=== PATIENT | female | born 1965 | race Caucasian/White ===

== ENCOUNTER → 2024-02-10 12:55 | Outpatient (REF) | payer BC, SELFPAY | LOC: RAD 12:55 | PROVIDERS: ATTENDING PHYSICIAN Nurse Practitioner Family; FAMILY PHYSICIAN Family Medicine | DX: R07.89 Other chest pain (principal) | CPT/HCPCS: 71046 ==

== ENCOUNTER → 2024-03-14 12:04 | Outpatient (REF) | payer BC, SELFPAY | LOC: RAD 12:04 | PROVIDERS: ATTENDING PHYSICIAN Family Medicine | DX: R05.2 Subacute cough (principal) | CPT/HCPCS: 71046 ==

== ENCOUNTER → 2024-03-25 13:51 | Outpatient (REF) | payer BC, SELFPAY | LOC: HWRAD 13:51 | PROVIDERS: ATTENDING PHYSICIAN Family Medicine | DX: R05.3 Chronic cough (principal); J47.0 Bronchiectasis with acute lower respiratory infection | CPT/HCPCS: 71250 ==

== ENCOUNTER 2024-04-27 06:35 | Day surgery (SDC) | payer BC, SELFPAY ==
[2024-04-27 10:32] VITALS: BMI 18.2
[2024-04-27 10:33] VITALS: BP 124/65
[2024-04-27 10:44] VITALS: BMI 18.2
[2024-04-27] MEDS: TRANSDERM-SCOP 1 PATCH TRANSDERM (10:59)
[2024-04-27 11:35] VITALS: BP 125/65
[2024-04-27 12:30] VITALS: BP 125/59
[2024-04-27 12:45] VITALS: BP 122/55
[2024-04-27 13:15] VITALS: BP 115/57
[2024-04-27 14:55] LABS: BAL Lymphocytes 11 %; BAL Macrophages 58 %; BAL Neutrophils 31 %; Brochalveolar Lavage Character Hazy (Clear); Brochalveolar Lavage Color Pink; Brochalveolar Lavage Volume 17 ml; Brochalveolar Lavage WBC 264000 cells/ml
== END 2024-04-27 13:15 | disposition home or self-care (01) ==
LOC: GI 06:35
PROVIDERS: ATTENDING PHYSICIAN Internal Medicine Critical Care Medicine
DX: J98.11 Atelectasis (principal); J21.9 Acute bronchiolitis, unspecified
CPT/HCPCS: 31624; 31645; 87070; 87102; 87107; 87116; 87205; 88112; 89051

== ENCOUNTER → 2024-05-04 09:08 | Outpatient (REF) | payer BC, SELFPAY | LOC: RAD 09:08 | PROVIDERS: ATTENDING PHYSICIAN Surgery Vascular Surgery; FAMILY PHYSICIAN Family Medicine | DX: Z13.6 Encounter for screening for cardiovascular disorders (principal) | CPT/HCPCS: 76770 ==

== ENCOUNTER → 2024-09-30 11:52 | Outpatient (REF) | payer BC, SELFPAY | LOC: RAD 11:52 | PROVIDERS: ATTENDING PHYSICIAN Internal Medicine Critical Care Medicine; FAMILY PHYSICIAN Family Medicine | DX: J47.9 Bronchiectasis, uncomplicated (principal); A31.9 Mycobacterial infection, unspecified | CPT/HCPCS: 71250 ==

== ENCOUNTER 2024-11-01 09:04 | Emergency (ER) | payer BC, SELFPAY ==
[2024-11-01 09:12] VITALS: BP 118/68
--- NOTE | 2024-11-01 09:29 | ED.GENMED ---
History of Present Illness
General
Chief Complaint: Chest Problem
Time Seen by Provider: 11/01/24 09:18
History of Present Illness
History of Present Illness:
59-year-old female with history of bronchiectasis and Mycobacterium AVM presents to the emergency department for evaluation of chest pain and shortness of breath. She notes over the past several months she has had progressive worsening dysphagia
and is concerned for esophageal stricture. She had seen GI as an outpatient and was scheduled for an endoscopy however due to insurance issues had to cancel this. She has been using predominantly a soft diet to curb the symptoms. Notes that in
the past several days she has had increased chest discomfort and this morning felt short of breath and walking up the stairs concerning her for a nonesophageal problem. Denies any recent fevers or coughing. No leg swelling. Tolerating soft diet
without sensation of food bolus obstruction.
Past History
Past History
ED Past Medical History: Other (Pneumonia and pleurisy); Negative Asthma, CAD, HTN, Hypercholesterolemia, IDDM or NIDDM
ED Past Surgical History: Appendectomy and Other (ureter)
Social History
Tobacco: Non-smoker
Alcohol: None
Drug: None
Personal:
Living: with family
Employment: Employed
Family History
Family History: Negative Early CAD
Review of Systems
Review of Systems
Allergies reviewed?: Yes
All Other Systems: ROS reviewed and negative except as documented in HPI and ROS
Phy Exam
Physical Exam
Physical Exam:
GEN: Well appearing, NAD, WDWN
HEENT: Oral mucosa moist, no scleral icterus
Cardiac: Tachycardic, regular
Lung: No respiratory distress, no tachypnea, lungs clear to auscultation bilaterally
Abdomen: Soft, grossly nontender
MSK: No gross deformity or injuries
Skin: Good color, no pallor or jaundice, no rashes
Neuro: AO x3, moves all extremities freely
Psych: Calm, cooperative
Course
Orders/Labs/Results
Orders:
Orders
11/01/24 09:07
Electrocardiogram (*1) Urgent
Reason for Study: Shortness of Breath
Other Reason for Exam: chest pain
EKG- Treatment ONCE
11/01/24 09:28
Sucralfate Suspension [Carafate Suspension] 1 gm PO NOW STA
11/01/24 09:29
CR Chest - 2 Views Urgent
Comment:
Reason For Exam: chest pain
11/01/24 09:38
Complete Blood Count/With Diff Urgent
Comprehensive Metabolic Panel Urgent
Troponin I Urgent
Abnormal Lab Results
11/01/24
09:38
MCHC 32.9 L g/dL
(33.0-37.0)
BUN 19 H mg/dl
(7-17)
Glucose 148 H mg/dl
(70-99)
11/01/24 09:38
11/01/24 09:38
Vital Signs
Initial and Last Documented VS:
Initial Vital Signs
Temp Pulse Resp BP Pulse Ox
98.1 F 110 20 118/68 96
11/01/24 09:12 11/01/24 09:12 11/01/24 09:12 11/01/24 09:12 11/01/24 09:12
Last Documented Vital Signs
Temp Pulse Resp BP Pulse Ox
98.1 F 84 20 124/88 99
11/01/24 09:12 11/01/24 11:28 11/01/24 11:28 11/01/24 11:28 11/01/24 11:28
MDM/Problems Addressed
MDM/Problems Addressed:
Patient's cardiac workup is benign and chest x-ray is unrevealing of acute pathology. Her symptoms sound more gastrointestinal than cardiac, she did improve with oral Carafate administration. Will start on PPI and Carafate, encouraged soft/liquid
diet until outpatient GI follow-up
Comment
Comment:
EKG independently interpreted by me shows a sinus tachycardia with a right bundle branch block and a left posterior fascicular block, complete right bundle and fascicular block are new compared to prior EKG from 2019
*Critical Care Note
Total Time (30-74mins, 75-104mins- exclusive of procedures): Not Applicable
ED Attending Note
-
Portions of this chart may have been created with voice recognition software.� Occasional wrong word or��sound alike� substitutions may have occurred due to the inherent limitations of voice recognition software.
Discharge Plan
Departure
Patient Disposition: Home (Routine Discharge)
Date of Disposition: 11/01/24
Time of Disposition: 11:01
Patient with high blood pressure during this ER visit?: No
Discharge Problem:
Chest pain due to GERD
Instructions: Acid reflux and GERD in adults
Prescriptions:
New
pantoprazole [Protonix] 40 mg tablet,delayed release (DR/EC)
40 mg PO DAILY Qty: 14 0RF
sucralfate [Carafate] 1 gram tablet
1 g PO AC Qty: 60 0RF
No Action
cetirizine 10 MG tablet
10 mg PO DAILY
multivitamin with folic acid [Tab-A-Radha] 1 TABLET tablet
1 tab PO DAILY
Probiotic 1 EACH capsule
1 ea PO DAILY
famotidine 40 mg Tablet
40 mg PO HS
sumatriptan succinate 50 mg Tablet
50 mg PO ONCE PRN (Reason: migraines)
albuterol 90 mcg/actuation Aerosol
1 mcg INHALATION PRN PRN (Reason: illness)
cholecalciferol (vitamin D3) [Vitamin D3] 25 mcg (1,000 unit) Capsule
25 mcg PO DAILY
magnesium glycinate 100 mg Tablet
100 mg PO DAILY
Gemtesa 75 mg Tablet
75 mg PO DAILY
Referrals:
Leonor Ascencio MD [Family Provider] -
Activity Restrictions/Additional Instructions:
Dissolve the carafate in clear liquid prior to ingestion
Soft diet/liquid diet, increase food density as tolerated, avoid dense proteins
Interventions
Interventions:
*Risk Screen - Suicide Last Done: 11/01/24 09:43
*General Assessment Last Done: 11/01/24 09:12
*Neglect/Abuse Screening Last Done: 11/01/24 09:12
ED- Fall Risk Assessment Last Done: 11/01/24 09:43
*ED COVID-19 Vaccine History Last Done: 11/01/24 09:12
*Nursing Disposition Last Done: 11/01/24 11:28
ED- Cardiac Assessment Last Done: 11/01/24 09:43
ED- Pulmonary Assessment Last Done: 11/01/24 09:43
Discharge Date and Time
Discharge Date/Time: 11/01/24 11:29
Print Language: PALESTINIAN
[2024-11-01] MEDS: CARAFATE SUSPENSION 1 GM PO (09:40)
[2024-11-01 09:42] VITALS: BMI 19.9
[2024-11-01 09:48] LABS: % Basophils 0.6 % (0-2); % Eosinophils 0.6 % (0-6); % Immature Granulocytes 0.2 % (0-0.5); % Lymphocytes 23.6 % (20.5-51.1); % Monocytes 7.1 % (1.7-9.3); % Neutrophils 67.9 % (42.2-75.2); Absolute Lymphocytes 1.2 10^3/uL (1.2-3.4); Absolute Monocytes 0.4 10^3/uL (0.1-0.6); Absolute Neutrophils 3.5 10^3/uL (1.4-6.5); Hematocrit 38.3 % (37.0-47.0); Hemoglobin 12.6 g/dL (12.0-16.0); Mean Corp Hgb Conc. 32.9 g/dL (33.0-37.0); Mean Corpuscular Hgb 28.4 pg (27.0-31.0); Mean Corpuscular Volume 86.3 fL (81.0-99.0); Mean Platelet Volume 9.6 fL (7.4-10.4); Nucleated Red Blood Cells % 0 %; Platelet Count 222 10^3/uL (130-400); Red Blood Cell Count 4.44 10^6/uL (4.20-5.40); Red Cell Dist. Width 12.7 % (11.5-14.5); White Blood Cell Count 5.1 10^3/uL (4.8-10.8)
[2024-11-01 10:08] LABS: ALT (SGPT) 25 U/L (0-35); AST (SGOT) 35 U/L (14-36); Albumin 4.5 g/dl (3.5-5.0); Alkaline Phosphatase 62 U/L (38-126); Blood Urea Nitrogen 19 mg/dl (7-17); Calcium 9.3 mg/dl (8.4-10.2); Carbon Dioxide 26 mmol/L (22-30); Chloride 103 mmol/L (98-107); Estimated Creatinine Clearance 67 ml/min; Glucose 148 mg/dl (70-99); Sodium 139 mmol/L (135-145); Total Bilirubin 0.5 mg/dl (0.2-1.3); Total Protein 7.4 g/dl (6.3-8.2); eGFR > 60.00
[2024-11-01 10:38] LABS: Troponin I < 0.012 ng/ml
[2024-11-01 11:28] VITALS: BP 124/88
== END 2024-11-01 11:29 | disposition home or self-care (01) ==
LOC: EMR 09:04
PROVIDERS: Physician Assistant; EMERGENCY PHYSICIAN Emergency Medicine; FAMILY PHYSICIAN Family Medicine
DX: K21.9 Gastro-esophageal reflux disease without esophagitis (principal); R07.89 Other chest pain; I45.2 Bifascicular block; Z87.09 Personal history of other diseases of the respiratory system
CPT/HCPCS: 99285; 71046; 80053; 84484; 85025; 93005

== ENCOUNTER 2024-11-07 08:19 | Day surgery (SDC) | payer BC, SELFPAY | END 2024-11-07 15:38 | disposition home or self-care (01) | LOC: GI 08:19 | PROVIDERS: ATTENDING PHYSICIAN Internal Medicine Gastroenterology | DX: R13.14 Dysphagia, pharyngoesophageal phase (principal); R12 Heartburn; K22.2 Esophageal obstruction; K44.9 Diaphragmatic hernia without obstruction or gangrene; K31.7 Polyp of stomach and duodenum | CPT/HCPCS: 43249; 88305 ==

== ENCOUNTER → 2025-01-13 08:51 | Outpatient (REF) | payer BC, SELFPAY | LOC: HWRAD 08:51 | PROVIDERS: ATTENDING PHYSICIAN Internal Medicine Critical Care Medicine; FAMILY PHYSICIAN Family Medicine | DX: J47.9 Bronchiectasis, uncomplicated (principal) | CPT/HCPCS: 71250 ==

== ENCOUNTER → 2025-04-10 07:20 | Outpatient (REF) | payer BC, SELFPAY | LOC: RAD 07:20 | PROVIDERS: ATTENDING PHYSICIAN Surgery Vascular Surgery; FAMILY PHYSICIAN Family Medicine | DX: I72.8 Aneurysm of other specified arteries (principal) | CPT/HCPCS: 74174; Q9967 ==

== ENCOUNTER → 2025-10-25 08:01 | Outpatient (REF) | payer BC, SELFPAY | LOC: HWRAD 08:01 | PROVIDERS: ATTENDING PHYSICIAN Internal Medicine Critical Care Medicine; FAMILY PHYSICIAN Family Medicine | DX: J47.9 Bronchiectasis, uncomplicated (principal); R91.1 Solitary pulmonary nodule | CPT/HCPCS: 71250 ==